=== PATIENT | female | born 1950 | race Caucasian/White ===

== ENCOUNTER 2022-10-10 17:13 | Observation (INO) | payer OTHER ==
--- NOTE | 2022-10-10 17:31 | RAD REPORT ---
EXAM DESCRIPTION: CT - Ct Stroke Brain Wo Cont - 10/10/2022 5:22 pm CLINICAL HISTORY: STROKE ALERT COMPARISON: No comparisons TECHNIQUE: Noncontrast head CT images ad were obtained without IV contrast. Multiplanar reformats we re generated and reviewed. All CT scans are performed using dose optimization technique as appropriate and may include automated exposure control or mA/KV adjustment according to patient size. FINDINGS: No intracranial hemorrhage, mass, or edema. Midline structures are unremarkable. Normal ventricular caliber for age. Mild diffuse parenchymal volume loss. Regions of cortical/ subcortical encephalomalacia along the left frontal and parietal lobes, as well as a small focus of hypoattenuation in the left cerebellar hemisphere, suggestive of sequelae of rivka te ischemia. Hemphill-white matter differentiation is otherwise preserved, without evidence of acute infa rct. No abnormal extra-axial fluid collections. Mild nonspecific deep white matter hypoattenuation, suggestive of chronic small vessel ischemic mckinney es. Mastoid air cells and visualized portions of the paranasal sinuses are clear. No acute bony findings. IMPRESSION: No evidence of an acute intracranial process. Findings suggesting sequelae of remote ischemia in the left frontal and parietal lobes, as well as a small focus of hypoattenuation in the left cerebellar hemisphere. The findings were communicated to Kamron Pulido on 10/10/2022 at 17:27 hours.
[2022-10-10] MEDS ORDERED: TENECTEPLASE 50 MG/10 ML VIAL IV ONE (17:38)
[2022-10-10] MEDS ORDERED: NA CHLORIDE 0.9% 500 ML ONE (17:38)
[2022-10-10 17:42] LABS: Absolute Lymphocytes (CBC) 1.6 K/uL (0.7-4.9); Hematocrit 38.5 % (36.0-45.0); Lymphocytes % 38.9 % (15.3-44.8); MCV 90.4 fL (80-100); MPV 7.2 fL (7.6-11.3); RBC Red Blood Cell Count 4.26 M/uL (3.86-4.86)
[2022-10-10 17:53] LABS: Protime INR 0.9
[2022-10-10 18:01] LABS: ALT/SGPT 21 U/L (13-56); AST/SGOT 15 U/L (15-37); Albumin 3.6 g/dL (3.4-5.0); Alkaline Phosphatase 146 U/L (45-117); BUN Blood Urea Nitrogen 17 mg/dL (7-18); Bicarbonate 27 mmol/L (21-32); Bilirubin Total 0.3 mg/dL (0.2-1.0); Glomerular Filtration Rate 78 ml/min (=/>90); Glucose Level 382 mg/dL (74-106); Magnesium 2.2 mg/dL (1.6-2.4); Potassium 3.7 mmol/L (3.5-5.1); Sodium Level 135 mmol/L (136-145); Troponin High Sensitivity 3.9 pg/mL (<58.9)
[2022-10-10 18:06] LABS: Bilirubin Direct < 0.1 mg/dL (0-0.2)
--- NOTE | 2022-10-10 18:19 | EDPHYS ---
Physician Documentation [facility] Name: Mignon Vargas Age: 72 yrs Sex: Female : 1950 Arrival Date: 10/10/2022 Time: 17:15 Bed 2 Private MD: ED Physician Kamron Pulido HPI: 10/10 18:10 This 72 yrs old Female presents to ER via EMS with complaints of S/S of Possible Stroke.rn 18:10 The patient's problem is reported as slurred speech, vision problem. Onset: The rn symptoms/episode began/occurred 1.5 hour(s) ago. The symptoms are alleviated by nothing. The symptoms are aggravated by nothing. Associated signs and symptoms: Pertinent negatives: abdominal pain, chest pain, headache, seizure, shortness of breath, vertigo, weakness. Severity of symptoms: At their worst the symptoms were moderate in the emergency department the symptoms are unchanged. The patient has not experienced similar symptoms in the past. The patient has not recently seen a physician. Family states witnessed change noticed approx 1-1.5 hours prior to arrival, slurred speech, words not making sense, and reports double vision.. Historical: - Allergies: 17:28 No Known Allergies; ph - Home Meds: 17:28 Metformin Oral [Active]; ph - PMHx: 17:28 Diabetes mellitus; ph 17:29 Transient cerebral ischemia; ph - Immunization history:: Adult Immunizations unknown. - Family history:: not pertinent. - Social history:: Smoking status: Patient denies any tobacco usage or history of. - Hospitalizations: : No recent hospitalization is reported. ROS: 18:10 Constitutional: Negative for fever, chills, and weight loss, Eyes: Negative for injury, rn pain, redness, and discharge, Neck: Negative for injury, pain, and swelling, Cardiovascular: Negative for chest pain, palpitations, and edema, Respiratory: Negative for shortness of breath, cough, wheezing, and pleuritic chest pain, Abdomen/GI: Negative for abdominal pain, nausea, vomiting, diarrhea, and constipation, Back: Negative for injury and pain, MS/Extremity: Negative for injury and deformity, Skin: Negative for injury, rash, and discoloration, Neuro: Negative for headache, weakness, numbness, tingling, and seizure. Exam: 18:10 Radiologist reports: No acute abnormalities rn 18:10 Constitutional: This is a well developed, well nourished patient who is awake, alert, and in no acute distress. Head/Face: Normocephalic, atraumatic. Eyes: Pupils equal round and reactive to light, extra-ocular motions intact. NO nystagmus. + discordant eye movement. Cardiovascular: Regular rate and rhythm. No pulse deficits. Respiratory: No increased work of breathing, no retractions or nasal flaring. Abdomen/GI: Soft, non-tender Skin: Warm, dry MS/ Extremity: Pulses equal, no cyanosis Neuro: Awake and alert, GCS 15, oriented to person, place, time, and situation. + discordant eye movement, no nystagmus. Motor strength 5/5 in all extremities. Sensory grossly intact. + moderate slurred speech and incorrect usage of words/identification. 18:28 ECG was reviewed by the Attending Physician. rn Vital Signs: 17:26 BP 166 / 100; Pulse 91; Resp 18; Temp 97.9; Pulse Ox 98% on R/A; Weight 55 kg; ph 17:32 BP 160 / 98; rn 17:38 BP 154 / 95; ph 18:00 BP 148 / 97; Pulse 89; Resp 18; Pulse Ox 98% on R/A; ph 19:00 BP 163 / 94; Pulse 85; Resp 19 S; Pulse Ox 97% on R/A; aa9 19:39 BP 161 / 95; Pulse 85; Resp 18 S; Pulse Ox 97% on R/A; aa9 20:00 BP 145 / 80; Pulse 66; Resp 17 S; Pulse Ox 96% on R/A; aa9 20:15 BP 140 / 87; Pulse 69; Resp 16 S; Pulse Ox 96% on R/A; aa9 NIH Stroke Scale Scores: 17:20 NIHSS Score: 3 ph 18:06 NIHSS Score: 3 rn 19:00 NIHSS Score: 0 aa9 20:30 NIHSS Score: 0 aa9 MDM: 17:16 Patient medically screened. rn 17:32 ED course: Pt with onset of symptoms of blurred vision and slurred speech, onset 1 - rn 1.5 hours ago, was witnessed onset by family, they are visiting and on vacation. No trauma. No recent surgery. + hx of stroke in past. No blood thinners. Pt meets TNKase criteria and does not have any contraindications. Patient and family consented and TNKase ordered. . 18:10 Differential diagnosis: CVA, TIA, metabolic disorder. Data reviewed: vital signs, rn nurses notes, lab test result(s), radiologic studies, CT scan, and as a result, I will admit patient. Consideration of Admission/Observation Patient was admitted/placed on observation. Escalation of care including admission/observation considered. I considered the following discharge prescriptions or medication management in the emergency department Medications were administered in the Emergency Department. See ROSCOE Forrester. Independent interpretation of the following test(s) in the Emergency Department EKG: See my EKG interpretation above CT Scan: My interpretation is CT head images negative for hemorrhage. Care significantly affected by the following chronic conditions: Diabetes, Hypertension. Counseling: I had a detailed discussion with the patient and/or guardian regarding: the historical points, exam findings, and any diagnostic results supporting the discharge/admit diagnosis, lab results, radiology results, the need for further work-up and treatment in the hospital. Response to treatment: the patient's symptoms have markedly improved after treatment, and as a result, I will admit patient. ED course: Pt already exhibiting improvement of symptoms s/p TNKase. Will admit for further evaluation and for ischemic CVA.. 10/10 17:16 Order name: Basic Metabolic Panel; Complete Time: 18: ph 10/10 17:16 Order name: CBC with Diff; Complete Time: 18: ph 10/10 17:16 Order name: High Sensitivity Troponin; Complete Time: 18: ph 10/10 17:16 Order name: Protime (+inr); Complete Time: 18: ph 10/10 17:16 Order name: Ptt, Activated; Complete Time: 18: ph 10/10 17:17 Order name: Hepatic Function; Complete Time: 18: rn 10/10 17:16 Order name: CT Stroke Brain w/o Contrast; Complete Time: 18: ph 10/10 17:16 Order name: Stroke CXR 1 View; Complete Time: 18:44 ph 10/10 17:17 Order name: Magnesium; Complete Time: 18: rn 10/10 17:39 Order name: Glucose, Ancillary Testing; Complete Time: 18:09 EDAK 10/10 18:34 Order name: SARS RAPID; Complete Time: 20:08 rn 10/10 18:44 Order name: CT Head Angio rn 10/10 18:44 Order name: Neck Angio CT rn 10/10 19:17 Order name: CT; Complete Time: 19:48 EDMS 10/10 17:16 Order name: EKG; Complete Time: 17:17 ph 10/10 17:16 Order name: Accucheck; Complete Time: 17:28 ph 10/10 17:16 Order name: Cardiac monitoring; Complete Time: 17:28 ph 10/10 17:16 Order name: EKG - Nurse/Tech; Complete Time: 17:28 ph 10/10 17:16 Order name: IV Saline Lock; Complete Time: 17:28 ph 10/10 17:16 Order name: Labs collected and sent; Complete Time: 17:28 ph 10/10 17:16 Order name: NPO; Complete Time: 17:28 ph 10/10 17:16 Order name: O2 Per Protocol; Complete Time: 17:28 ph 10/10 17:16 Order name: O2 Sat Monitoring; Complete Time: 17:28 ph 10/10 17:16 Order name: Stroke Swallow Screen; Complete Time: 19:23 ph 10/10 19:24 Order name: CT; Complete Time: 19:48 EDMS EC:28 Rate is 86 beats/min. Rhythm is regular. QRS [place] is Normal. [place] interval is normal. QRS rn interval is normal. QT interval is normal. No Q waves. T waves are Normal. No ST changes noted. Clinical impression: NSR w/ Non-specific ST/T Changes. Interpreted by me. Reviewed by me. Administered Medications: 17:40 Drug: TNK FOR STROKE - Tenecteplase 0.25 mg/kg {Co-Signature: jl7 (Lizz Looney RN).} Route: IV; Rate: per protocol; Site: right forearm; 17:50 Follow up: Response: No adverse reaction; IV Status: Completed infusion ph 18:30 Drug: foLIC Acid 1 mg Route: IVPB; Site: right forearm; ph 19:27 Follow up: Response: No adverse reaction; IV Status: Completed infusion ph 18:30 Drug: Insulin Regular Human 10 units {Co-Signature: jl7 (Lizz Looney RN).} Route: ph Sub-Q; Site: right upper arm; 19:28 Follow up: Response: No adverse reaction ph 19:52 Drug: Aspirin Chewable Tablet 81 mg Route: PO; aa9 20:24 Follow up: Response: No adverse reaction aa9 Disposition Summary: 10/10/22 18:18 Hospitalization Ordered Hospitalization Status: Inpatient Admission rn Condition: Stable rn Problem: new rn Symptoms: have improved rn Bed/Room Type: Standard rn Provider: Parish Renee(10/10/22 19:06) sb4 Location: Intensive Care Unit(10/10/22 20:03) mw Room Assignment: 6-(10/10/22 20:03) mw Diagnosis - Cerebral infarction, unspecified rn - Aphasia following cerebral infarction rn - Dysarthria following cerebral infarction rn - Diplopia rn - Hyperglycemia, unspecified rn Forms: - Medication Reconciliation Form rn - SBAR form rn chronic time excluding procedures: 18:10 Critical care time: Bedside Care: 35 minutes, Family Intervention: 5 minutes. Total rn time: 40 minutes NIH Stroke Scale - NIH Stroke Score Date: 10/10/2022 Time: 17:20 Total Score = 3 1a. Level of Consciousness (LOC) - 0(Alert) 1b. Level of Consciousness (LOC) (Month \T\ Age) - 1(One) 1c. LOC Commands (Open \T\ Closes Eyes/Public Health Doctor) - 0(Both) 2. Best Gaze (Lateral Gaze Paresis) - 0(Normal) 3. Visual Field Loss - 0(No visual loss) 4. Facial Palsy - 0(Normal) 5a. Left Arm: Motor (10-second hold) - 0(No drift) 5b. Right Arm: Motor (10-second hold) - 0(No drift) 6a. Left Leg: Motor (5-second hold - always test supine) - 0(No drift) 6b. Right Leg: Motor (5-second hold - always test supine) - 0(No drift) 7. Limb Ataxia (finger/nose \T\ heel/freeman - test with eyes open) - 0(Absent) 8. Sensory Loss (pinprick arms/legs/face) - 0(Normal) 9. Best Language: Aphasia (description/naming/reading) - 1(Mild to moderate aphasia) 10. Dysarthria (speech clarity - read or repeat words) - 1(Mild to Moderate) 11. Extinction and Inattention (visual/tactile/auditory/spatial/personal) - 0(No abnormality) Initials: NIH Stroke Scale - NIH Stroke Score Date: 10/10/2022 Time: 18:06 Total Score = 3 1a. Level of Consciousness (LOC) - 0(Alert) 1b. Level of Consciousness (LOC) (Month \T\ Age) - 1(One) 1c. LOC Commands (Open \T\ Closes Eyes/Public Health Doctor) - 0(Both) 2. Best Gaze (Lateral Gaze Paresis) - 0(Normal) 3. Visual Field Loss - 0(No visual loss) 4. Facial Palsy - 0(Normal) 5a. Left Arm: Motor (10-second hold) - 0(No drift) 5b. Right Arm: Motor (10-second hold) - 0(No drift) 6a. Left Leg: Motor (5-second hold - always test supine) - 0(No drift) 6b. Right Leg: Motor (5-second hold - always test supine) - 0(No drift) 7. Limb Ataxia (finger/nose \T\ heel/freeman - test with eyes open) - 0(Absent) 8. Sensory Loss (pinprick arms/legs/face) - 0(Normal) 9. Best Language: Aphasia (description/naming/reading) - 1(Mild to moderate aphasia) 10. Dysarthria (speech clarity - read or repeat words) - 1(Mild to Moderate) 11. Extinction and Inattention (visual/tactile/auditory/spatial/personal) - 0(No abnormality) Initials: kemal NIH Stroke Scale - NIH Stroke Score Date: 10/10/2022 Time: 19:00 Total Score = 0 1a. Level of Consciousness (LOC) - 0(Alert) 1b. Level of Consciousness (LOC) (Month \T\ Age) - 0(Both) 1c. LOC Commands (Open \T\ Closes Eyes/Public Health Doctor) - 0(Both) 2. Best Gaze (Lateral Gaze Paresis) - 0(Normal) 3. Visual Field Loss - 0(No visual loss) 4. Facial Palsy - 0(Normal) 5a. Left Arm: Motor (10-second hold) - 0(No drift) 5b. Right Arm: Motor (10-second hold) - 0(No drift) 6a. Left Leg: Motor (5-second hold - always test supine) - 0(No drift) 6b. Right Leg: Motor (5-second hold - always test supine) - 0(No drift) 7. Limb Ataxia (finger/nose \T\ heel/freeman - test with eyes open) - 0(Absent) 8. Sensory Loss (pinprick arms/legs/face) - 0(Normal) 9. Best Language: Aphasia (description/naming/reading) - 0(No aphasia) 10. Dysarthria (speech clarity - read or repeat words) - 0(Normal) 11. Extinction and Inattention (visual/tactile/auditory/spatial/personal) - 0(No abnormality) Initials: aa9 NIH Stroke Scale - NIH Stroke Score Date: 10/10/2022 Time: 20:30 Total Score = 0 1a. Level of Consciousness (LOC) - 0(Alert) 1b. Level of Consciousness (LOC) (Month \T\ Age) - 0(Both) 1c. LOC Commands (Open \T\ Closes Eyes/Public Health Doctor) - 0(Both) 2. Best Gaze (Lateral Gaze Paresis) - 0(Normal) 3. Visual Field Loss - 0(No visual loss) 4. Facial Palsy - 0(Normal) 5a. Left Arm: Motor (10-second hold) - 0(No drift) 5b. Right Arm: Motor (10-second hold) - 0(No drift) 6a. Left Leg: Motor (5-second hold - always test supine) - 0(No drift) 6b. Right Leg: Motor (5-second hold - always test supine) - 0(No drift) 7. Limb Ataxia (finger/nose \T\ heel/freeman - test with eyes open) - 0(Absent) 8. Sensory Loss (pinprick arms/legs/face) - 0(Normal) 9. Best Language: Aphasia (description/naming/reading) - 0(No aphasia) 10. Dysarthria (speech clarity - read or repeat words) - 0(Normal) 11. Extinction and Inattention (visual/tactile/auditory/spatial/personal) - 0(No abnormality) Initials: aa9 Signatures: Dispatcher [employer] EDMS Kary Elizondo RN RN Kamron Pulido MD MD rn Hall, Patricia, RN RN Ghazala Huff RN RN aa9 Lea Mabry PA-C PA-C sb4 Lizz Looney RN [email or web address] Corrections: (The following items were deleted from the chart) : 18:18 Marco Ferrell rn sb4 20: 18:18 Telemetry/MedSurg (Inpatient) ekmal fong 20: 18:18 kemal fong
--- NOTE | 2022-10-10 18:19 | ER ---
Nurse's Notes [facility] Name: Mignon Vargas Age: 72 yrs Sex: Female : 1950 Arrival Date: 10/10/2022 Time: 17:15 Bed 2 Private MD: Diagnosis: Cerebral infarction, unspecified;Aphasia following cerebral infarction;Dysarthria following cerebral infarction;Diplopia;Hyperglycemia, unspecified Presentation: 10/10 17:17 Chief complaint: EMS states: Pt having stroke like symptoms that started at approx ph 1650, R sided weakness and slurred speech, hx of TIA and diabetes, BGL 383, VSS. Ebola Screen: No symptoms or risks identified at this time. Risk Assessment: Do you want to hurt yourself or someone else? Patient reports no desire to harm self or others. Onset of symptoms was October 10, 2022. 17:17 Method Of Arrival: EMS: [facility] ph 17:17 Acuity: KAMLESH 2 ph 17:20 Initial Sepsis Screen: Does the patient meet any 2 criteria? No. Patient's initial ph sepsis screen is negative. Does the patient have a suspected source of infection? No. Patient's initial sepsis screen is negative. 19:26 Coronavirus screen: Vaccine status: Patient reports receiving the 2nd dose of the covid ph vaccine. Historical: - Allergies: 17:28 No Known Allergies; ph - Home Meds: 17:28 Metformin Oral [Active]; ph - PMHx: 17:28 Diabetes mellitus; ph 17:29 Transient cerebral ischemia; ph - Immunization history:: Adult Immunizations unknown. - Family history:: not pertinent. - Social history:: Smoking status: Patient denies any tobacco usage or history of. - Hospitalizations: : No recent hospitalization is reported. Screenin:19 [facility] ED Fall Risk Assessment (Adult) History of falling in the last 3 months, ph including since admission No falls in past 3 months (0 pts) Confusion or Disorientation No (0 pts) Intoxicated or Sedated No (0 pts) Impaired Gait Yes (1 pt) Mobility Assist Device Used No (0 pt) Altered Elimination No (0 pt) Score/Fall Risk Level 0 - 2 = Low Risk Oriented to surroundings, Maintained a safe environment, Hourly rounding (assess needs \T\ fall precautionary measures) done. Abuse screen: Denies threats or abuse. Denies injuries from another. Nutritional screening: No deficits noted. Tuberculosis screening: No symptoms or risk factors identified. 19:23 Beth Swallow Protocol Result: PASS. ph Assessment: 17:17 Reassessment: Pt taken to CT via stretcher by Lizz SY. ph 17:20 Reassessment: Pt returned from CT, Dr Pulido at bedside to assess pt. ph 17:20 General: Appears in no apparent distress. well groomed, Behavior is calm, cooperative, ph appropriate for age. Pain: Denies pain. Neuro: Level of Consciousness is awake, alert, obeys commands, Oriented to person, place, situation, Reporter Anchor are equal bilaterally Moves all extremities. Speech is slurred, Facial symmetry appears normal, Facial symmetry: tongue is midline, Intact Reports blurred vision diplopia. Cardiovascular: Capillary refill < 3 seconds in bilateral fingers Patient's skin is warm and dry. Respiratory: Airway is patent Respiratory effort is even, unlabored, Respiratory pattern is regular, symmetrical. GI: No signs and/or symptoms were reported involving the gastrointestinal system. Derm: Skin is healthy with good turgor, Skin is pink, warm \T\ dry. Musculoskeletal: Circulation, motion, and sensation intact. Range of motion: intact in all extremities. 17:27 Reassessment: Pt agrees to receiving TNK, family at bedside. ph 17:35 Reassessment: Consent for TNK signed by pt's . ph 18:00 Reassessment: Patient appears in no apparent distress at this time. Patient and/or ph family updated on plan of care and expected duration. Pain level reassessed. Patient is alert, oriented x 3, equal unlabored respirations, skin warm/dry/pink. Speech noted to have improved, pt also now oriented to person, place, and time including year, continues to report blurred/double vision. 20:44 Reassessment: Patient and/or family updated on plan of care and expected duration. Pain aa9 level reassessed. Patient is alert, oriented x 3, equal unlabored respirations, skin warm/dry/pink. report provided to Rochelle. Vital Signs: 17:26 BP 166 / 100; Pulse 91; Resp 18; Temp 97.9; Pulse Ox 98% on R/A; Weight 55 kg; ph 17:32 BP 160 / 98; rn 17:38 BP 154 / 95; ph 18:00 BP 148 / 97; Pulse 89; Resp 18; Pulse Ox 98% on R/A; ph 19:00 BP 163 / 94; Pulse 85; Resp 19 S; Pulse Ox 97% on R/A; aa9 19:39 BP 161 / 95; Pulse 85; Resp 18 S; Pulse Ox 97% on R/A; aa9 20:00 BP 145 / 80; Pulse 66; Resp 17 S; Pulse Ox 96% on R/A; aa9 20:15 BP 140 / 87; Pulse 69; Resp 16 S; Pulse Ox 96% on R/A; aa9 NIH Stroke Scale Scores: 17:20 NIHSS Score: 3 ph 18:06 NIHSS Score: 3 rn 19:00 NIHSS Score: 0 aa9 20:30 NIHSS Score: 0 aa9 ED Course: 17:15 Patient arrived in ED. eb 17:16 Kamron Pulido MD is Attending Physician. rn 17:18 Triage completed. ph 17:19 Arm band placed on Patient placed in an exam room. ph 17:20 Patient has correct armband on for positive identification. Bed in low position. Call ph light in reach. Side rails up X 1. Client placed on continuous cardiac and pulse oximetry monitoring. NIBP monitoring applied. 17:23 CT Stroke Brain w/o Contrast In Process Unspecified. EDMS 17:24 Initial lab(s) drawn, by me, sent to lab. EKG done, by ED staff, reviewed by Kamron Pulido MD. Maintain EMS IV. Dressing intact. Good blood return noted. Site clean \T\ dry. Gauge \T\ site: 18 Left AC. 17:26 Divina Coburn, RN is Primary Nurse. ph 17:38 Inserted saline lock: 20 gauge in right forearm, using aseptic technique. jl7 18:07 Stroke CXR 1 View In Process Unspecified. EDMS 18:17 Marco Ferrell MD is Hospitalizing Provider. rn 19:06 Parish Renee is Hospitalizing Provider. sb4 19:26 No provider procedures requiring assistance completed. Patient admitted, IV remains in ph place. 19:52 SARS RAPID Sent. aa9 Administered Medications: 17:40 Drug: TNK FOR STROKE - Tenecteplase 0.25 mg/kg {Co-Signature: glenn (Jahala Looney ph RN).} Route: IV; Rate: per protocol; Site: right forearm; 17:50 Follow up: Response: No adverse reaction; IV Status: Completed infusion ph 18:30 Drug: foLIC Acid 1 mg Route: IVPB; Site: right forearm; ph 19:27 Follow up: Response: No adverse reaction; IV Status: Completed infusion ph 18:30 Drug: Insulin Regular Human 10 units {Co-Signature: jl7 (Lizz Looney RN).} Route: ph Sub-Q; Site: right upper arm; 19:28 Follow up: Response: No adverse reaction ph 19:52 Drug: Aspirin Chewable Tablet 81 mg Route: PO; aa9 20:24 Follow up: Response: No adverse reaction aa9 Medication: 19:25 VIS not applicable for this client. ph Outcome: 18:18 Decision to Hospitalize by Provider. rn 21:16 Admitted to ICU accompanied by nurse, via stretcher, room 6, with chart, Report called aa9 to Karlene 21:16 Condition: stable 21:16 Instructed on the need for admit. 21:16 Patient left the ED. aa9 NIH Stroke Scale - NIH Stroke Score Date: 10/10/2022 Time: 17:20 Total Score = 3 1a. Level of Consciousness (LOC) - 0(Alert) 1b. Level of Consciousness (LOC) (Month \T\ Age) - 1(One) 1c. LOC Commands (Open \T\ Closes Eyes/Cable Assembler) - 0(Both) 2. Best Gaze (Lateral Gaze Paresis) - 0(Normal) 3. Visual Field Loss - 0(No visual loss) 4. Facial Palsy - 0(Normal) 5a. Left Arm: Motor (10-second hold) - 0(No drift) 5b. Right Arm: Motor (10-second hold) - 0(No drift) 6a. Left Leg: Motor (5-second hold - always test supine) - 0(No drift) 6b. Right Leg: Motor (5-second hold - always test supine) - 0(No drift) 7. Limb Ataxia (finger/nose \T\ heel/freeman - test with eyes open) - 0(Absent) 8. Sensory Loss (pinprick arms/legs/face) - 0(Normal) 9. Best Language: Aphasia (description/naming/reading) - 1(Mild to moderate aphasia) 10. Dysarthria (speech clarity - read or repeat words) - 1(Mild to Moderate) 11. Extinction and Inattention (visual/tactile/auditory/spatial/personal) - 0(No abnormality) Initials: nevaeh NIH Stroke Scale - NIH Stroke Score Date: 10/10/2022 Time: 18:06 Total Score = 3 1a. Level of Consciousness (LOC) - 0(Alert) 1b. Level of Consciousness (LOC) (Month \T\ Age) - 1(One) 1c. LOC Commands (Open \T\ Closes Eyes/Cable Assembler) - 0(Both) 2. Best Gaze (Lateral Gaze Paresis) - 0(Normal) 3. Visual Field Loss - 0(No visual loss) 4. Facial Palsy - 0(Normal) 5a. Left Arm: Motor (10-second hold) - 0(No drift) 5b. Right Arm: Motor (10-second hold) - 0(No drift) 6a. Left Leg: Motor (5-second hold - always test supine) - 0(No drift) 6b. Right Leg: Motor (5-second hold - always test supine) - 0(No drift) 7. Limb Ataxia (finger/nose \T\ heel/freeman - test with eyes open) - 0(Absent) 8. Sensory Loss (pinprick arms/legs/face) - 0(Normal) 9. Best Language: Aphasia (description/naming/reading) - 1(Mild to moderate aphasia) 10. Dysarthria (speech clarity - read or repeat words) - 1(Mild to Moderate) 11. Extinction and Inattention (visual/tactile/auditory/spatial/personal) - 0(No abnormality) Initials: kemal NIH Stroke Scale - NIH Stroke Score Date: 10/10/2022 Time: 19:00 Total Score = 0 1a. Level of Consciousness (LOC) - 0(Alert) 1b. Level of Consciousness (LOC) (Month \T\ Age) - 0(Both) 1c. LOC Commands (Open \T\ Closes Eyes/Cable Assembler) - 0(Both) 2. Best Gaze (Lateral Gaze Paresis) - 0(Normal) 3. Visual Field Loss - 0(No visual loss) 4. Facial Palsy - 0(Normal) 5a. Left Arm: Motor (10-second hold) - 0(No drift) 5b. Right Arm: Motor (10-second hold) - 0(No drift) 6a. Left Leg: Motor (5-second hold - always test supine) - 0(No drift) 6b. Right Leg: Motor (5-second hold - always test supine) - 0(No drift) 7. Limb Ataxia (finger/nose \T\ heel/freeman - test with eyes open) - 0(Absent) 8. Sensory Loss (pinprick arms/legs/face) - 0(Normal) 9. Best Language: Aphasia (description/naming/reading) - 0(No aphasia) 10. Dysarthria (speech clarity - read or repeat words) - 0(Normal) 11. Extinction and Inattention (visual/tactile/auditory/spatial/personal) - 0(No abnormality) Initials: aa9 NIH Stroke Scale - NIH Stroke Score Date: 10/10/2022 Time: 20:30 Total Score = 0 1a. Level of Consciousness (LOC) - 0(Alert) 1b. Level of Consciousness (LOC) (Month \T\ Age) - 0(Both) 1c. LOC Commands (Open \T\ Closes Eyes/Cable Assembler) - 0(Both) 2. Best Gaze (Lateral Gaze Paresis) - 0(Normal) 3. Visual Field Loss - 0(No visual loss) 4. Facial Palsy - 0(Normal) 5a. Left Arm: Motor (10-second hold) - 0(No drift) 5b. Right Arm: Motor (10-second hold) - 0(No drift) 6a. Left Leg: Motor (5-second hold - always test supine) - 0(No drift) 6b. Right Leg: Motor (5-second hold - always test supine) - 0(No drift) 7. Limb Ataxia (finger/nose \T\ heel/freeman - test with eyes open) - 0(Absent) 8. Sensory Loss (pinprick arms/legs/face) - 0(Normal) 9. Best Language: Aphasia (description/naming/reading) - 0(No aphasia) 10. Dysarthria (speech clarity - read or repeat words) - 0(Normal) 11. Extinction and Inattention (visual/tactile/auditory/spatial/personal) - 0(No abnormality) Initials: aa9 Signatures: Dispatcher [employer] EDMS Kamron Pulido MD MD rn Hall, Patricia, RN RN Lizz Looney RN RN jl7 Debbie Webb Aylin, RN RN aa9 Lea Mabry PA-C PAFarrahC sb4 Lizz Looney RN jl7
[2022-10-10] MEDS ORDERED: INSULIN -REGULAR HUMAN 50 UNIT/0.5 ML ML ONE (18:31)
[2022-10-10] MEDS ORDERED: FOLIC ACID 5 MG/ML VIAL ONE (18:31)
[2022-10-10] MEDS ORDERED: ASPIRIN 81 MG CHEWABLE TABLET ONE (18:31)
--- NOTE | 2022-10-10 18:36 | RAD REPORT ---
EXAM DESCRIPTION: [facility] Single View10/10/2022 6:05 pm CLINICAL HISTORY: stroke COMPARISON: Ct Stroke Brain Wo Cont dated 10/10/2022 TECHNIQUE: Portable AP view of the chest. FINDINGS: Decreased inspiratory effort, which limits evaluation. The lungs are clear. No pneumothora x or effusion. The cardiomediastinal contours are unremarkable. IMPRESSION: No acute cardiopulmonary process.
--- NOTE | 2022-10-10 19:04 | P.HP ---
Certification for Inpatient Patient admitted to: Observation With expected LOS: <2 Midnights Patient will require the following post-hospital care: None Practitioner: I am a practitioner with admitting privileges, knowledge of patient current condition, hospital course, and medical plan of care. Services: Services provided to patient in accordance with Admission requirements found in Title 42 Section 412.3 of the Code of Federal Regulations Patient History Date of Service: 10/10/22 Reason for admission: Acute CVA History of Present Illness: Patient is a 72 year old female with past medical history of TIA and non-insulin dependent type 2 diabetes who presented to the emergency department with stroke like symptoms. She has been on vacation in [place] when today she started exhibiting slurred speech/expressive aphasia, dipolpia, and right sided weakness. Head CT showed "Findings suggesting sequelae of remote ischemia in the left frontal and parietal lobes, as well as a small focus of hypoattenuation in the left cerebellar hemisphere." She was given TNK in the emergency department and her symptoms have slowly started to resolve. Head/neck CTA are negative. No significant lab abnormalities except for hyperglycemia, which she received insulin for in the ED. She will be admitted for further management. Home medications list reviewed: Yes - Past Medical/Surgical History Diabetic: Yes -: Type 2 Diabetes, Non-Insulin Dependent -: TIA Past Surgical History: Patient denies surgical history Psychosocial/ Personal History: Patient is . - Family History Family History: Reviewed- Non-Contributory - Social History Smoking Status: Never smoker Alcohol use: Yes CD- Drugs: No Caffeine use: Yes Place of Residence: Home Review of Systems Eyes: Vision Change Neurological: Weakness, Change in Speech, Confusion Physical Examination - Vital Signs Temperature: 97.9 F Blood Pressure: 154/95 Pulse: 91 Respirations: 18 Pulse Ox (%): 98 - Physical Exam General: Alert, In no apparent distress HEENT: Atraumatic, EOMI, Sclerae nonicteric Neck: Supple, 2+ carotid pulse no bruit Respiratory: Clear to auscultation bilaterally, Normal air movement Cardiovascular: Regular rate/rhythm, Normal S1 S2 Gastrointestinal: Normal bowel sounds, No tenderness Musculoskeletal: No tenderness Integumentary: No rashes Neurological: Normal strength at 5/5 x4 extr, Sensation intact, Normal affect, Abnormal speech - Studies Laboratory Data (last 24 hrs) 10/10/22 17:27: PT 9.9, INR 0.90, APTT 24.2 L 10/10/22 17:27: WBC 4.10 L, Hgb 13.2, Hct 38.5, Plt Count 275 10/10/22 17:27: Sodium 135 L, Potassium 3.7, BUN 17, Creatinine 0.81, Glucose 382 H, Magnesium 2.2, Total Bilirubin 0.3, AST 15, ALT 21, Alkaline Phosphatase 146 H Assessment and Plan - Problems (Diagnosis) (1) Acute CVA (cerebrovascular accident) Current Visit: Yes Status: Acute (2) Type 2 diabetes mellitus Current Visit: Yes Status: Chronic Qualifiers: Diabetes mellitus fpc insulin use: without fpc use Diabetes mellitus complication status: with hyperglycemia Qualified Code(s): E11.65 - Type 2 diabetes mellitus with hyperglycemia - Plan Patient is admitted to ICU for observation of CVA s/p TNK. Symptoms have mostly resolved. She is still experiencing some blurry vision but strength & sensation are intact. MRI stroke protocol and echo ordered for the morning. Head CT ordered for 24 hours post TNK. Frequent neurologic checks and NIHSS. Monitor on telemetry. Glucose monitoring and control with sliding scale. Check A1c. Patient states she has not been compliant with her metformin due to GI upset. Diabetic diet if she passes bedside swallow. Physical therapy and speech therapy consult. Check lipid panel and TSH. Monitor and replete electrolytes per protocol. Reconcile and continue home medications. Discharge Plan: Home Plan to discharge in: 24 Hours - Advance Directives Does patient have a Living Will: No Does patient have a Durable POA for Healthcare: No - Code Status/Comfort Care Code Status Assessed: Yes Code Status: Full Code Physician Review: Patient Assessed, Agree with Above Assessment and Plan Critical Care: No Time Spent Managing Pts Care (In Minutes): 50
--- NOTE | 2022-10-10 19:16 | RAD REPORT ---
EXAM DESCRIPTION: CT - Head angio - 10/10/2022 7:05 pm CLINICAL HISTORY: SLURRED SPEECH COMPARISON: Ct Stroke Brain Wo Cont dated 10/10/2022; Neck Angio dated 10/10/2022 TECHNIQUE: Axial CT angiography images of the head was performed with multiplanar and maximum intens ity projection reconstructions. Images performed following intravenous administration of 95mL Isovue 370. All CT scans are performed using dose optimization technique as appropriate and may include automated exposure control or mA/KV adjustment according to patient size. FINDINGS: No evidence of large vessel occlusion. No evidence of aneurysm or dissection flap is detec tasha. No flow-limiting stenosis or vascular malformation identified. Antegrade flow is seen in the vertebral arteries. The vertebral arteries are codominant. The visualized dural venous sinuses are grossly patent. IMPRESSION: No evidence of large vessel occlusion or flow-limiting stenosis.
--- NOTE | 2022-10-10 19:23 | RAD REPORT ---
EXAM DESCRIPTION: CT - Neck Angio - 10/10/2022 7:06 pm CLINICAL HISTORY: slurred speech, diplopia COMPARISON: Noncontrast head CT of same day TECHNIQUE: Axial CT angiography images of the head was performed with multiplanar and maximum intens ity projection reconstructions. Images performed following intravenous administration of 95mL Isovue 370. All CT scans are performed using dose optimization technique as appropriate and may include automated exposure control or mA/KV adjustment according to patient size. FINDINGS: A left aortic arch is identified with variant anatomic configuration, with the left verteb ral artery arising directly as the third vessel from the large. No significant flow abnormality is seen of the common carotid bilaterally. No significant stenosis is identified involving the cervical segments of both internal carotid arteri es. Normal flow is seen within both vertebral arteries. A small right apical ground-glass opacities present IMPRESSION: No significant flow abnormality of the neck vessels is identified. Variant anatomy with direct aortic origin of the left vertebral artery.
[2022-10-10 20:02] LABS: SARS-CoV-2 Antigen Rapid Res Negative (Negative)
[2022-10-10] MEDS ORDERED: ACETAMINOPHEN 500 MG TAB PO PRN (20:52)
[2022-10-10] MEDS ORDERED: ONDANSETRON 4 MG/2 ML VIAL IV PRN (20:52)
[2022-10-10] MEDS ORDERED: ALBUTEROL 2.5 MG/3 ML NEB SOL NEB PRN (20:52)
[2022-10-10] MEDS: NA CHLORIDE 0.9% 1,000 ML IV SCH (20:52)
[2022-10-10] MEDS ORDERED: ATORVASTATIN 20 MG TAB PO SCH (21:00)
[2022-10-10] MEDS: INSULIN -REGULAR HUMAN 50 UNIT/0.5 ML ML SQ SCH (21:35)
[2022-10-10 22:02] VITALS: BMI 23.6
[2022-10-11 04:42] LABS: Absolute Lymphocytes (CBC) 1.5 K/uL (0.7-4.9); Hematocrit 36.6 % (36.0-45.0); Lymphocytes % 33.4 % (15.3-44.8); MCV 89.3 fL (80-100); MPV 7.4 fL (7.6-11.3)
[2022-10-11 05:10] LABS: Magnesium 2.1 mg/dL (1.6-2.4); Phosphorus 4.1 mg/dL (2.5-4.9); Potassium 3.3 mmol/L (3.5-5.1); Thyroid Stimulating Hormone 3.18 uIU/mL (0.358-3.740)
[2022-10-11] MEDS ORDERED: POTASSIUM CL SA 10 MEQ TAB PO ONE (06:30)
[2022-10-11] MEDS: INSULIN -REGULAR HUMAN 50 UNIT/0.5 ML ML SQ SCH ×3 (07:30→16:30)
[2022-10-11 09:11] VITALS: O2SAT 97
[2022-10-11] MEDS: NA CHLORIDE 0.9% 1,000 ML IV SCH (12:07)
[2022-10-11] MEDS ORDERED: ALBUTEROL 2.5 MG/3 ML NEB SOL NEB PRN (13:00)
--- NOTE | 2022-10-11 13:05 | RAD REPORT ---
EXAM DESCRIPTION: MRI - Brain Wo Cont - 10/11/2022 12:19 pm CLINICAL HISTORY: CVA COMPARISON: Noncontrast head CT and CT angiogram 10/10/2022 TECHNIQUE: Multiplanar multisequence MRI of the brain performed without IV contrast. FINDINGS: Left medial dynamic focus of diffusion restriction corresponding T2/FLAIR hyperintensity, suggesting an acute to subacute infarct. No evidence of acute intracranial hemorrhage or abnormal extra-axial fluid collections. Moderate diffuse parenchymal volume loss. Ventricular caliber otherwise within normal for age. Midlin e structures are unremarkable. Small regions of encephalomalacia along the bilateral frontal and left parietal cortex, right forceps minor, and small similar foci along the cerebellar hemispheres bilaterally, suggestive of sequelae o f remote ischemia. Mild subcortical and deep white matter T2/FLAIR hyperintensities, nonspecific, but suggestive of director health margret small vessel ischemic changes. No mass effect or midline shift. Major vascular flow voids are preserved. Mastoid air cells and paranasal sinuses are clear. IMPRESSION: Small left thalamic acute to subacute infarct. Sequelae of remote ischemia along the bilateral frontal, left parietal lobes, and bilateral cerebella r hemispheres. Nonspecific white matter T2 hyperintensities as well, suggestive of chronic small vess el ischemic changes. The findings were communicated to Parish Renee on 10/11/2022 at 13:00 hours.
--- NOTE | 2022-10-11 16:28 | P.DS ---
Admission Date: 10/10/22 Discharge Date: 10/11/22 Disposition: ROUTINE DISCHARGE Discharge Condition: FAIR Reason for Admission: Acute CVA - Problems (1) Hyperlipidemia Current Visit: Yes Status: Acute (2) Acute CVA (cerebrovascular accident) Current Visit: Yes Status: Acute (3) Type 2 diabetes mellitus Current Visit: Yes Status: Chronic Qualifiers: Diabetes mellitus intermediate card tender insulin use: without intermediate card tender use Diabetes mellitus complication status: with hyperglycemia Qualified Code(s): E11.65 - Type 2 diabetes mellitus with hyperglycemia Brief History of Present Illness: Patient is a 72 year old female with past medical history of TIA and non-insulin dependent type 2 diabetes who presented to the emergency department with stroke like symptoms. She has been on vacation in [place] when she started experiencing slurred speech/expressive aphasia, dipolpia, and right sided weakness. Head CT showed "Findings suggesting sequelae of remote ischemia in the left frontal and parietal lobes, as well as a small focus of hypoattenuation in the left cerebellar hemisphere." She was given TNK in the emergency department with some improvement in her neurologic symptoms. Head/neck CTA were negative. No significant lab abnormalities except for hyperglycemia, which she received insulin for in the ED. Patient was admitted for further management. Hospital Course: Patient hospitalized in the ICU post TNKase. Had neurologic symptoms-slurred speech, right-sided weakness resolved during the hospital stay. She passed swallow evaluation. Speech therapy evaluated her and has swallowing reported as normal. Solid diet and thin liquids recommended. She has a residual blurry vision. No arrhythmia on a teletypesetter monitor. MRI of the brain done reported small acute to subacute left thalamic infarct. Lipid profile showed elevated LDL up to 145. Hemoglobin A1c of 10. Patient seen and evaluated by neurology Dr. Cooper recommended aspirin, Plavix, high-dose statin and folic acid. He was evaluated by PT patient ambulated independently. Repeat head CT 24 hours after TNKase shows no intracranial hemorrhage. Patient deemed stable for discharge per neurology. Vital Signs/Physical Exam: Temp Pulse Resp BP Pulse Ox 97.1 F 54 14 125/76 97 10/11/22 12:00 10/11/22 15:00 10/11/22 15:00 10/11/22 15:00 10/11/22 15:00 General: Alert, In no apparent distress, Oriented x3 HEENT: Mucous membr. moist/pink Neck: Supple, JVD not distended Respiratory: Clear to auscultation bilaterally, Normal air movement Cardiovascular: No edema, Regular rate/rhythm, Normal S1 S2 Gastrointestinal: Normal bowel sounds, Soft and benign, Non-distended, No tenderness Musculoskeletal: No swelling Integumentary: No rashes Neurological: Normal strength at 5/5 x4 extr Laboratory Data at Discharge: WBC 4.60 K/uL (4.3-10.9) 10/11/22 04:12 Hgb 12.7 g/dL (12.0-15.0) 10/11/22 04:12 Hct 36.6 % (36.0-45.0) 10/11/22 04:12 Plt Count 268 K/uL (152-406) 10/11/22 04:12 PT 9.9 SECONDS (9.5-12.5) 10/10/22 17: INR 0.90 10/10/22 17: APTT 24.2 SECONDS (24.3-36.9) L 10/10/22 17: Sodium 139 mmol/L (136-145) 10/11/22 04:12 Potassium 3.3 mmol/L (3.5-5.1) L 10/11/22 04:12 BUN 16 mg/dL (7-18) 10/11/22 04:12 Creatinine 0.64 mg/dL (0.55-1.02) 10/11/22 04:12 Glucose 186 mg/dL (74-106) H 10/11/22 04:12 Phosphorus 4.1 mg/dL (2.5-4.9) 10/11/22 04:12 Magnesium 2.1 mg/dL (1.6-2.4) 10/11/22 04:12 Total Bilirubin 0.3 mg/dL (0.2-1.0) 10/10/22 17: AST 15 U/L (15-37) 10/10/22 17: ALT 21 U/L (13-56) 10/10/22 17:27 Alkaline Phosphatase 146 U/L (45-117) H 10/10/22 17:27 Triglycerides 147 mg/dL (<150) 10/11/22 04:12 Cholesterol 212 mg/dL (<200) H 10/11/22 04:12 HDL Cholesterol 37 mg/dL (40-60) L 10/11/22 04:12 Cholesterol/HDL Ratio 5.73 10/11/22 04:12 Home Medications: Aspirin [Aspirin EC 81 MG] 81 mg PO DAILY #30 tab 10/11/22 Atorvastatin Calcium [Lipitor] 80 mg PO BEDTIME #30 tab 10/11/22 Clopidogrel Bisulfate [Plavix] 75 mg PO DAILY #30 tab 10/11/22 Folic Acid 1 mg PO DAILY #30 tab 10/11/22 Metformin HCl [Glucophage*] 500 mg PO BIDWM #60 tab 10/11/22 Sitagliptin Phosphate [Januvia] 50 mg PO DAILY #30 tab 10/11/22 New Medications: Aspirin [Aspirin EC 81 MG] 81 mg PO DAILY #30 tab Folic Acid 1 mg PO DAILY #30 tab Metformin HCl [Glucophage*] 500 mg PO BIDWM #60 tab Sitagliptin Phosphate [Januvia] 50 mg PO DAILY #30 tab Atorvastatin Calcium [Lipitor] 80 mg PO BEDTIME #30 tab Clopidogrel Bisulfate [Plavix] 75 mg PO DAILY #30 tab Diet: ADA Activity: Fall precautions Followup: GENIA CORMIER [Primary Care Provider] - 1 Week
[2022-10-11 16:42] VITALS: BP 108/70; TEMP 97.3
--- NOTE | 2022-10-11 18:30 | RAD REPORT ---
EXAM DESCRIPTION: CT - Head Brain Wo Cont - 10/11/2022 6:11 pm CLINICAL HISTORY: s/p TNK COMPARISON: Head angio dated 10/10/2022; Ct Stroke Brain Wo Cont dated 10/10/2022; Brain Wo Cont dated 10/11/2022 TECHNIQUE: Noncontrast head CT images ad were obtained without IV contrast. Multiplanar reformats we re generated and reviewed. All CT scans are performed using dose optimization technique as appropriate and may include automated exposure control or mA/KV adjustment according to patient size. FINDINGS: Small left thalamic focus of hypoattenuation corresponding to [facility]. This is a new finding since the initial head CT. No intracranial hemorrhage, mass, or edema. Midline structures are unremarkable. Stable ventricular caliber, with mild diffuse parenchymal volume loss. Stable burden of mild periventricular and deep white matter hypodensities, nonspecific but suggestive of chronic small vessel ischemic changes. Stable areas of encephalomalacia along the bilateral frontal and left parietal lobe, and left dustin ce rebellum. No abnormal extra-axial fluid collections. Mastoid air cells and visualized portions of the paranasal sinuses are clear. No acute bony findings. IMPRESSION: No evidence of an acute intracranial hemorrhage. Small left thalamic subacute infarct as noted on brain MRI on the same day. Other stable findings as above.
--- NOTE | 2022-10-11 18:40 | EKG ---
Test Date: 2022-10-10 Test Time: 17:31:34 Transportation Services Representative: ANDREZ MEASUREMENT RESULTS: Intervals: Rate: 86 NM: 176 QRSD: 72 QT: 386 QTc: 461 [place]: P: 40 NM: 176 QRS: -16 T: 54 INTERPRETIVE STATEMENTS: Sinus rhythm with fusion complexes Low voltage QRS Inferior infarct, age undetermined Cannot rule out Anterior infarct, age undetermined Abnormal ECG No previous ECG available for comparison Electronically Signed On 10-11-22 18:38:43 COPY EDITOR by Storm Agarwal
[2022-10-11] MEDS ORDERED: ATORVASTATIN 80 MG TAB PO SCH (21:00)
--- NOTE | 2022-10-12 03:23 | CON ---
Reason For Consultation: Consultation called because of stroke. History Of Present Illness: Ms. Vargas is a 72-year-old patient with poorly controlled diabetes feliciano itus who comes to [facility] with new stroke-like symptoms. She was on vacation at [place] on the when she developed worsening slurred speech and difficulty getting her thoughts out and arturo ble vision along with some right-sided weakness. At [facility], she had a head CT scan that showed sequelae of remote stroke in the left frontal and parietal lobes and a small focus of hypoatte nuation in the left cerebellar hemisphere. Since the patient did arrive actually to the hospital in time within the 4-1/2 hours to receive TNKs and she did not have any other contraindications. She wa s given TNKs in the emergency room. Her symptoms actually began to resolve prior to her coming up to the ICU for further monitoring. She did have a CT angiogram of head and neck, which were negative f or any large vessel occlusion. The patient's blood sugars have ranged from around 186 up to 378 and her hemoglobin A1c has been 10.6. She did say while on vacation she was not watching what she was ea ting and not taking her medications properly. She was also found to have elevated cholesterol of 212 , LDL cholesterol elevated to 146, HDL low at 37. Her cholesterol to HDL ratio was elevated at 5.73. COVID-19 testing was negative. Complete blood count differential was unremarkable. She did have a repeat CT scan done 24 hours after the TNKs and that was negative for any bleeding. She was seen by Speech and Physical Therapy and actually had done very well, ambulated without assistive device, and she was cleared for swallowing. As a result of her great recovery, she was actually discharged home and will follow up in the clinic. Medications that she was discharged on include the Lipitor 40 mg at bedtime, aspirin 81 mg daily, and Plavix 75 mg daily. Past Medical History: As noted. Past Surgical History: Denies any surgeries. Social History: Patient is , lives with spouse, and was on vacation as noted. No tobacco or alcohol use. Allergies: BANANA, CARROT, CELERY, HAZELNUT, AND LATEX. Review of Systems: Aside from mentioned, no fevers, chills, nausea, vomiting, myalgias, arthralgias, rash, headache, ciara ght change. No psychiatric issues. No gastrointestinal or genitourinary issues. Physical Examination: Vital Signs: Blood pressure 108/70, pulse 71, respiratory rate 15, temperature 97.3, oxygen saturati on 96% on room air. Weight pounds, height 5 feet, BMI of 23.7. GENERAL: Ms. Vargas is resting comfortably in bed. She is having an echocardiogram done. HEENT: She is normocephalic, atraumatic. Sclerae anicteric. Oropharynx is pink and moist. Neck: Supple. Chest: Clear. Heart: Regular. Extremities: Show no clubbing, cyanosis, or edema. Neurological: She has a subtle left partial hemianopsia. Otherwise, cranial nerves are intact to ex am. Motor: No significant right-sided weakness appreciated and left-sided also, no significant weak ness appreciated. Coordination intact. Reflexes symmetric. Gait: She ambulated 400 feet with standby assistance without the use of an assistive device. Assessment: Ms. Vargas is a 72-year-old patient with uncontrolled diabetes mellitus, who comes in [facility] history of prior stroke with excellent resolution of new stroke after TNKs with great resolution. The patient should be discharged home on aspirin, Plavix, folic acid, and statin. Plan: As indicated. Discharged on medications as noted and she was told she really requires rate co ntrol of blood sugars, which is likely a big reason why she had these strokes. She was told to follow up in Dr. Cooper's clinic 1 month a fter discharge. BASHIR/ZEHRA Voice ID: [id number] Report ID: [id number]
--- NOTE | 2022-10-12 06:56 | ECHO ---
HEIGHT: 5 ft 0 in WEIGHT: 121 lb 4.8 oz DATE OF STUDY: 10/11/[address]: Lea Mabry 2-DIMENSIONAL: YES M.MODE: YES DOPPLER: YES COLOR FLOW: YES TDS: PORTABLE: YES DEFINITY: BUBBLE STUDY: YES DIAGNOSIS: STROKE CARDIAC HISTORY: CATHERIZATION: SURGERY: PROSTHETIC VALVE: PACEMAKER: MEASUREMENTS (cm) DIASTOLIC (NORMALS) SYSTOLIC (NORMALS) IVSd 0.9 (0.6-1.2) LA Diam 3.0 (1.9-4.0) LVEF 59% LVIDd 3.6 (3.5-5.7) LVIDs 2.5 (2.0-3.5) %FS 31% LVPWd 0.9 (0.6-1.2) Ao Diam 2.8 (2.0-3.7) 2 DIMENSIONAL ASSESSMENT: RIGHT ATRIUM: NORMAL LEFT ATRIUM: NORMAL RIGHT VENTRICLE: NORMAL LEFT VENTRICLE: NORMAL TRICUSPID VALVE: NORMAL MITRAL VALVE: NORMAL PULMONIC VALVE: NORMAL AORTIC VALVE: THICKENED, NO AORTIC STENOSIS PERICARDIAL EFFUSION: NONE AORTIC ROOT: NORMAL LEFT VENTRICULAR WALL MOTION: NORMAL DOPPLER/COLOR FLOW: SEE BELOW COMMENTS: 1. NORMAL LEFT VENTRICULAR EJECTION FRACTION 2. AORTIC VALVE SCLEROSIS, NO AORTIC STNENOSIS 3. 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 GRADE I DIASTOLIC DYSFUNCTION TECHNOLOGIST: SWATI SAENZ
== END 2022-10-11 19:30 | disposition home or self-care (01) ==
LOC: ER 17:13 → ERHOLD 18:55 → 3RD-ICU 20:16
PROVIDERS: ADMIT Internal Medicine; ATTEND Internal Medicine
DX: I63.9 Cerebral infarction, unspecified (principal); I67.82 Cerebral ischemia; R47.01 Aphasia; R29.703 NIHSS score 3; E11.9 Type 2 diabetes mellitus without complications; R47.81 Slurred speech; H53.2 Diplopia; R53.1 Weakness; E78.5 Hyperlipidemia, unspecified; Z86.73 Personal history of transient ischemic attack (TIA), and cerebral infarction without residual deficits; Z20.822 Contact with and (suspected) exposure to COVID-19
CPT/HCPCS: 96365; 92977; 93005; 93306; 85025 ×2; 80048 ×2; 36415; 83735 ×2; 84100; 85610; 80061; 82947 ×4; 80076; 85730; 84443; 83036; 84484; 70450 ×2; 70496; 70498; 71045; 70551; 92610; 97116; 97161; 94760 ×2; 96375; 96372; 99291; 87811; Q9967; J1815 ×2; J3101; J7040; J7030 ×2; G0378